=== PATIENT | male | born 1975 | race Hispanic/Latino ===

== ENCOUNTER 2024-02-05 09:25 | Inpatient (IN) | payer OTHER ==
[~2024-02-05] VITALS: Ht 170.2 cm; Wt 67.6 kg
[2024-02-05 10:10] LABS: BASOPHILS # (AUTO) 0.04 K/uL (0.00-0.20); BASOPHILS % (AUTO) 0.7 % (0.0-5.0); EOSINOPHILS # (AUTO) 0.13 K/uL (0.00-0.70); EOSINOPHILS % (AUTO) 2.4 % (0.0-8.0); HEMATOCRIT 38.7 % (42-54); IMMATURE GRANULOCYTE ABSOLUTE 0.02 K/uL (0-1); LYMPHOCYTES # (AUTO) 0.6 K/uL (1.0-4.8); LYMPHOCYTES % (AUTO) 10.5 % (21.0-51.0); MEAN CORPUSCULAR HEMOGLOBIN 30.7 pg (27.0-33.0); MEAN CORPUSCULAR HGB CONC 32.8 g/dL (32.0-36.0); MEAN CORPUSCULAR VOLUME 93.5 fL (79-99); MONOCYTES # (AUTO) 0.8 K/uL (0.1-1.0); MONOCYTES % (AUTO) 14.5 % (3.0-13.0); NEUTROPHILS # (AUTO) 3.9 K/uL (1.8-7.7); NEUTROPHILS % (AUTO) 71.5 % (40.0-77.0); PLATELET COUNT (AUTO) 209 K/uL (130-400); RED BLOOD CELL COUNT(AUTO) 4.14 MIL/uL (4.50-6.20); RED CELL DISTRIBUTION WIDTH 13.1 % (11.0-15.5); WHITE BLOOD COUNT (AUTO) 5.5 K/uL (4.8-10.8)
[2024-02-05 10:21] LABS: POTASSIUM 3.4 mmol/L (3.5-5.1)
[2024-02-05 10:27] LABS: ALBUMIN 3.1 g/dL (3.5-5.0); BILIRUBIN,TOTAL 0.3 mg/dL (0.2-1.0)
[2024-02-05] MEDS: KETOROLAC 30MG VIAL (30MG/ML) IVP ONE (12:29)
[2024-02-05] MEDS: ORPHENADRINE CITRATE 30 MG/ML ML IVP ONE (12:29)
[2024-02-05] MEDS: CEFAZOLIN SODIUM 1 GM VIAL IVPB ONE (12:32)
[2024-02-05] MEDS: MORPHINE 4 MG SYG IVP ONE (12:35)
[2024-02-05] MEDS: 0.9%NACL 1000ML 1,000 ML IV ONE (12:35)
[2024-02-05] MEDS ORDERED: IOHEXOL 350 MG/ML 100ML INFUS..BTL IV ONE (15:50)
[2024-02-05] MEDS ORDERED: IPRATROPIUM/ALBUTEROL SULFATE 3 ML SOLUTION IH PRN (17:30)
[2024-02-05] MEDS ORDERED: MAGNESIUM 2GM PREMIX 50ML 50 ML IV SCH (17:30)
[2024-02-05] MEDS ORDERED: POTASSIUM CHLORIDE 20MEQ/100ML 100 ML IV PRN (17:30)
[2024-02-05] MEDS ORDERED: POTASSIUM CHLORIDE 10% ELIXIR 20 MEQ/15 ML UDCUP PO PRN (17:30)
[2024-02-05] MEDS ORDERED: ACETAMINOPHEN 500 MG TABLET PO PRN (17:30)
[2024-02-05] MEDS: DIPH,PERTUSS(ACELL),TET VAC/PF 0.5 ML VIAL IM ONE (17:48)
[2024-02-05] MEDS: 0.9%NACL 1000ML 1,000 ML IV SCH (17:48)
[2024-02-05 17:49] VITALS: PULSE 90; RESP 18; O2SAT 100
[2024-02-05] MEDS: KCL 20 MEQ ERTAB PO PRN (17:49)
[2024-02-05] MEDS: MORPHINE 2 MG SYG IVP PRN (17:53)
[2024-02-05 18:01] LABS: MAGNESIUM 1.9 mg/dL (1.80-2.40)
[2024-02-05 18:04] LABS: INR <= 0.93 (0.85-1.15); PROTHROMBIN TIME 10.1 SEC (9.6-11.6)
[2024-02-05 18:05] LABS: PARTIAL THROMBOPLASTIN TIME 25.1 SEC (26.3-35.5)
[2024-02-05] MEDS: CEFAZOLIN SODIUM 1 GM VIAL IVPB SCH (19:46)
[2024-02-05] MEDS: PANTOPRAZOLE 40 MG TAB DR PO SCH (20:14)
[2024-02-05 21:11] LABS: ADD UA MICROSCOPIC YES; APPEARANCE,URINE CLEAR (CLEAR); BILIRUBIN,URINE NEGATIVE (NEGATIVE); COLOR,URINE YELLOW (YELLOW); GLUCOSE, URINE (UA) NEGATIVE (NEGATIVE); KETONES,URINE NEGATIVE (NEGATIVE); LEUKOCYTE ESTERASE ,URINE NEGATIVE Leu/uL (NEGATIVE); NITRATE,URINE NEGATIVE (NEGATIVE); OCCULT BLOOD,URINE NEGATIVE (NEGATIVE); PROTEIN,URINE 10 mg/dL (NEGATIVE); UROBILINOGEN,URINE 0.2 mg/dL (0.2-1.0)
[2024-02-05 21:13] LABS: AMPHET/METH SCREEN,URINE NEGATIVE (NEGATIVE); BACTERIA,URINE RARE /HPF (None Seen); BARBITURATE SCREEN, URINE NEGATIVE (NEGATIVE); BENZODIAZEPINES SCREEN,URINE NEGATIVE (NEGATIVE); CANNABINOID SCREEN,URINE NEGATIVE (NEGATIVE); COCAINE SCREEN,URINE POSITIVE (NEGATIVE); MUCUS,URINE FEW LPF (None Seen); OPIATE SCREEN,URINE POSITIVE (NEGATIVE); PHENCYCLIDINE SCREEN,URINE NEGATIVE (NEGATIVE); SQUAMOUS EPITHELIAL CELL,UR RARE /HPF (0-2); WBC,URINE 0-1 /HPF (0-1)
[2024-02-05] MEDS: KETOROLAC 15MG/ML VIAL (15MG/ML) IV PRN (23:00)
[2024-02-05 23:40] VITALS: BP_SYST 133; BP_SYST 151; BP_DIAS 89; BP_DIAS 91; PULSE 78; RESP 18
[2024-02-06] VITALS (7 sets, daily range): BP systolic 114–138; BP diastolic 69–84; PULSE 57–93; RESP 17–20; O2SAT 100
[2024-02-06] MEDS: DIPHENHYDRAMINE HCL 25 MG CAPSULE ONE (01:08)
[2024-02-06 03:50] LABS: BASOPHILS # (AUTO) 0.04 K/uL (0.00-0.20); BASOPHILS % (AUTO) 0.9 % (0.0-5.0); EOSINOPHILS # (AUTO) 0.18 K/uL (0.00-0.70); HEMATOCRIT 34.8 % (42-54); IMMATURE GRANULOCYTE ABSOLUTE 0.01 K/uL (0-1); MEAN CORPUSCULAR HEMOGLOBIN 30.6 pg (27.0-33.0); MEAN CORPUSCULAR HGB CONC 33.3 g/dL (32.0-36.0); MEAN CORPUSCULAR VOLUME 91.8 fL (79-99); MONOCYTES # (AUTO) 0.4 K/uL (0.1-1.0); MONOCYTES % (AUTO) 8.9 % (3.0-13.0); NEUTROPHILS # (AUTO) 2.9 K/uL (1.8-7.7); PLATELET COUNT (AUTO) 211 K/uL (130-400); RED BLOOD CELL COUNT(AUTO) 3.79 MIL/uL (4.50-6.20); RED CELL DISTRIBUTION WIDTH 12.9 % (11.0-15.5); WHITE BLOOD COUNT (AUTO) 4.5 K/uL (4.8-10.8)
[2024-02-06 04:12] LABS: ALBUMIN 2.7 g/dL (3.5-5.0); BILIRUBIN,TOTAL 0.4 mg/dL (0.2-1.0); CREATININE 0.7 mg/dL (0.5-1.3); POTASSIUM 4.1 mmol/L (3.5-5.1); TOTAL PROTEIN, SERUM 5.7 g/dL (6.0-8.3)
[2024-02-06 04:55] LABS: HIV 1&2 ANTIBODY Non-Reactive (Negative); HIV-1 p24 Antigen Non-Reactive (Negative)
[2024-02-06] MEDS: DIPHENHYDRAMINE HCL 25 MG CAPSULE PO PRN (06:51)
[2024-02-06] MEDS: Vitamin B Complex/Vit C/Folic Acid PO SCH (09:14)
[2024-02-06] MEDS ORDERED: POLYETHYLENE GLYCOL 3350 17 GM POWD.PACK PO PRN (11:30)
[2024-02-06] MEDS: BACITRACIN 28.4 GM OINT TP SCH (16:44)
[2024-02-06] MEDS: DOCUSATE SODIUM 100 MG CAP PO SCH (20:36)
[2024-02-07] VITALS: BP 115/58; PULSE 104; RESP 18
[2024-02-07 04:00] VITALS: BP 124/84; PULSE 93; RESP 18
[2024-02-07 07:54] VITALS: BP 112/76; PULSE 71; RESP 18
[2024-02-07] MEDS: ONDANSETRON 4MG INJ IVP PRN (08:02)
[2024-02-07 09:12] VITALS: O2SAT 100
[2024-02-07] MEDS ORDERED: ACETAMINOPHEN WITH CODEINE 1 TAB TAB PO PRN (10:00)
[2024-02-07 12:00] VITALS: BP 112/83; PULSE 85; RESP 18
[2024-02-10 05:14] LABS: HEPATITIS B CORE IGM Negative (Negative); HEPATITIS Bs ANTIGEN SCREEN P Negative (Negative)
== END 2024-02-07 13:10 | disposition left against medical advice (07) | DRG 200 ==
LOC: EDH 09:25 → EDHIP 09:26 → 4BH 23:46
PROVIDERS: ADMIT Student in an Organized Health Care Education/Training Program; ATTEND Student in an Organized Health Care Education/Training Program
DX: S27.0XXA Traumatic pneumothorax, initial encounter (principal); S22.32XA Fracture of one rib, left side, initial encounter for closed fracture; Z59.01 Sheltered homelessness; S42.112A Displaced fracture of body of scapula, left shoulder, initial encounter for closed fracture; F14.10 Cocaine abuse, uncomplicated; F31.9 Bipolar disorder, unspecified; W18.39XA Other fall on same level, initial encounter; Y93.89 Activity, other specified; Y92.89 Other specified places as the place of occurrence of the external cause; Y99.8 Other external cause status; Z82.3 Family history of stroke; Z82.49 Family history of ischemic heart disease and other diseases of the circulatory system; Z88.8 Allergy status to other drugs, medicaments and biological substances
CPT/HCPCS: 36415; 70450; 71045; 71100; 71250; 71275; 73030; 73610; 80053; 80305; 81001; 82550; 83735; 84484; 85025; 85610; 85730; 86701; 86704; 86705; 86706; 86803; 87040; 87340; 87390; 90471; 90715; 93005; 93306; 96365; 96375; 99291; G0378; J0690; J1885; J2270; J2405; J7030; Q0163; Q9967; J2360

== ENCOUNTER 2024-02-10 15:35 | Emergency (ER) | payer OTHER ==
[~2024-02-10] VITALS: Ht 170.2 cm; Wt 68.0 kg
[2024-02-10 15:54] LABS: BASOPHILS # (AUTO) 0.05 K/uL (0.00-0.20); BASOPHILS % (AUTO) 0.7 % (0.0-5.0); EOSINOPHILS # (AUTO) 0.17 K/uL (0.00-0.70); EOSINOPHILS % (AUTO) 2.4 % (0.0-8.0); HEMATOCRIT 43.3 % (42-54); IMMATURE GRANULOCYTE ABSOLUTE 0.03 K/uL (0-1); LYMPHOCYTES # (AUTO) 0.9 K/uL (1.0-4.8); LYMPHOCYTES % (AUTO) 12.4 % (21.0-51.0); MEAN CORPUSCULAR HEMOGLOBIN 30.3 pg (27.0-33.0); MEAN CORPUSCULAR HGB CONC 33.3 g/dL (32.0-36.0); MEAN CORPUSCULAR VOLUME 91.2 fL (79-99); MONOCYTES # (AUTO) 0.7 K/uL (0.1-1.0); MONOCYTES % (AUTO) 9.1 % (3.0-13.0); NEUTROPHILS # (AUTO) 5.4 K/uL (1.8-7.7); PLATELET COUNT (AUTO) 295 K/uL (130-400); RED BLOOD CELL COUNT(AUTO) 4.75 MIL/uL (4.50-6.20); RED CELL DISTRIBUTION WIDTH 12.8 % (11.0-15.5); WHITE BLOOD COUNT (AUTO) 7.2 K/uL (4.8-10.8)
[2024-02-10 16:03] LABS: CREATININE 1.4 mg/dL (0.5-1.3); POTASSIUM 3.8 mmol/L (3.5-5.1)
[2024-02-10 16:07] LABS: ALBUMIN 4.1 g/dL (3.5-5.0); BILIRUBIN,TOTAL 0.3 mg/dL (0.2-1.0); MAGNESIUM 2.3 mg/dL (1.80-2.40); TOTAL PROTEIN, SERUM 8.2 g/dL (6.0-8.3)
[2024-02-10 16:54] LABS: BAND NEUTROPHILS % (MANUAL) 2 % (0-2); EOSINOPHILS % (MANUAL) 3 % (1-6); LYMPHOCYTES % (MANUAL) 10 % (22-44); MONOCYTES % (MANUAL) 3 % (2-9); SEGMENTED NEUTROPHILS % 82 % (40-70); TOTAL CELLS COUNTED 100
[2024-02-10 16:55] LABS: MAN.DIFF COMMENT-IMPRESSION MANUAL DIFFERENTIAL; PLATELET MORPHOLOGY COMMENT ADEQUATE; WBC MORPHOLOGY CONSISTENT W/DIFF
[2024-02-10 20:32] VITALS: BP 126/76; PULSE 96; RESP 16; O2SAT 100
== END 2024-02-10 20:34 | disposition home or self-care (01) ==
LOC: EDH 15:35
DX: R07.89 Other chest pain (principal); F41.9 Anxiety disorder, unspecified; F32.A Depression, unspecified; Z88.8 Allergy status to other drugs, medicaments and biological substances
CPT/HCPCS: 36415; 71045; 80053; 83735; 84484; 85025; 93005